=== PATIENT | male | born 1955 | race Caucasian/White ===

== ENCOUNTER 2017-03-21 16:01 | Emergency (ER) | payer OTHER ==
[2017-03-21 16:14] VITALS: BP 180/101
--- NOTE | 2017-03-21 16:28 | UC ---
Respiratory Complaint HPI - HPI Summary HPI Summary: 4 weeks of cough and chest congestion no fevers up at night coughing - History of Current Complaint Chief Complaint: UCRespiratory Stated Complaint: CHEST COLD Time Seen by Provider: 03/21/17 16:21 Hx Obtained From: Patient Onset/Duration: Gradual Onset, Lasting Weeks - 4 Timing: Constant Severity Initially: Mild Severity Currently: Mild Pain Intensity: 4 Pain Scale Used: 0-10 Numeric Character: Cough: Productive Aggravating Factors: Recumbent Position Alleviating Factors: Nothing Associated Signs And Symptoms: Positive: URI, Nasal Congestion - Allergies/Home Medications Allergies/Adverse Reactions: Allergies Allergy/AdvReac Type Severity Reaction Status Date / Time No Known Allergies Allergy Verified 03/21/17 16:13 PMH/Surg Hx/FS Hx/Imm Hx Previously Healthy: No Cardiovascular History: Hypertension - borderline---is follow with pcp - Surgical History Surgical History: None - Family History Known Family History: Positive: None - Social History Occupation: Employed Full-time Lives: With Family Alcohol Use: Daily Substance Use Type: None Smoking Status (MU): Never Smoked Tobacco Review of Systems Constitutional: Fever - subjective Skin: Negative Eyes: Negative ENT: Negative Respiratory: Cough Cardiovascular: Negative Gastrointestinal: Negative Genitourinary: Negative Motor: Negative Neurovascular: Negative Musculoskeletal: Negative Neurological: Negative Psychological: Negative Is Patient Immunocompromised?: No All Other Systems Reviewed And Are Negative: Yes Physical Exam Triage Information Reviewed: Yes Appearance: Well-Appearing, No Pain Distress, Well-Nourished Vital Signs: Initial Vital Signs Temp 98.7 F 03/21/17 16:10 Pulse 89 03/21/17 16:10 Resp 18 03/21/17 16:10 BP 180/101 03/21/17 16:10 Pulse Ox 98 03/21/17 16:10 Vital Signs Reviewed: Yes Eye Exam: Normal Eyes: Positive: Conjunctiva Clear ENT Exam: Normal ENT: Positive: Normal ENT inspection, Hearing grossly normal, Pharynx normal, TMs normal. Negative: Nasal congestion, Nasal drainage, Tonsillar swelling, Tonsillar exudate, Trismus, Muffled/hoarse voice Dental Exam: Normal Neck exam: Normal Neck: Positive: Supple, Nontender, No Lymphadenopathy Respiratory Exam: Normal Respiratory: Positive: Chest non-tender, Lungs clear, Normal breath sounds, No respiratory distress, No accessory muscle use Cardiovascular Exam: Normal Cardiovascular: Positive: RRR, No Murmur, Pulses Normal, Brisk Capillary Refill Musculoskeletal Exam: Normal Musculoskeletal: Positive: Strength Intact, ROM Intact, No Edema Neurological Exam: Normal Neurological: Positive: Alert, Muscle Tone Normal Psychological Exam: Normal Skin Exam: Normal UC Diagnostic Evaluation - Laboratory O2 Sat by Pulse Oximetry: 98 Respiratory Course/Dx - Course Course Of Treatment: robitussin, increase fluids, tessalon, zithromax, follow with pcp in next 2 weeks for recheck and BP reevaluation - Differential Dx/Diagnosis Provider Diagnoses: Bronchitis, High Blood Pressure without diagnosis of hypertension Discharge - Discharge Plan Condition: Stable Disposition: HOME Prescriptions: Azithromycin TAB* [Zithromax TAB (Z-MALCOLM) 250 mg #6 tabs] 2 tab PO .TODAY, THEN 1 DAILY #1 malcolm Benzonatate CAP* [Tessalon 100 MG CAP*] 100 mg PO TID PRN #30 cap PRN Reason: cough Patient Education Materials: Antitussive/Decongestant/Expectorant (By mouth), Acute Bronchitis (ED), Hypertension (ED) Referrals: Jo Ann Martinez MD [Primary Care Provider] - 2 Weeks
== END 2017-03-21 16:43 | disposition home or self-care (01) ==
LOC: UCEAST 16:01
DX: J40 Bronchitis, not specified as acute or chronic (principal); R03.0 Elevated blood-pressure reading, without diagnosis of hypertension
CPT/HCPCS: 99202; G0463

== ENCOUNTER 2018-09-17 10:58 | Emergency (ER) | payer OTHER ==
[2018-09-17] MEDS ORDERED: Albuterol/Ipratropium NEB.SOL* Albuterol 2.5 MG/Ipratropium 0.5 MG 3 ML INH ONE (11:22)
--- NOTE | 2018-09-17 11:27 | UC ---
Respiratory Complaint HPI - HPI Summary HPI Summary: 63 old male who has had cold symptoms for the past 2 or 3 days with a productive cough of mildly yellow sputum. He does not feel short of breath. Nonsmoker and did receive a flu shot in the past. He did have some hypertension today and we discussed that he and his physician are working together with a new medication which he was prescribed approximate 6 or 7 months ago. He has an appointment in 2 weeks with his primary care provider. He goes to the gym and checks his blood pressure there he states the diastolic is usually about 100. He does keep track of that and will discuss that with his doctor in his visit. - History of Current Complaint Chief Complaint: UCGeneralIllness Stated Complaint: COUGH CONGESTION Time Seen by Provider: 09/17/18 11:05 Hx Obtained From: Patient Onset/Duration: Gradual Onset Timing: Constant Severity Initially: Mild Severity Currently: Mild Pain Intensity: 0 Character: Cough: Productive - To cough of light yellow sputum. Alleviating Factors: Nothing Associated Signs And Symptoms: Positive: URI, Nasal Congestion - Allergies/Home Medications Allergies/Adverse Reactions: Allergies Allergy/AdvReac Type Severity Reaction Status Date / Time No Known Allergies Allergy Verified 09/17/18 11:11 Home Medications: Home Medications Telmisartan 20 mg PO DAILY 09/17/18 [History Confirmed 09/17/18] PMH/Surg Hx/FS Hx/Imm Hx Previously Healthy: Yes Cardiovascular History: Hypertension - Surgical History Surgical History: None - Family History Known Family History: Positive: None - Social History Alcohol Use: Daily Alcohol Amount: 32 oz beer daily Substance Use Type: None Smoking Status (MU): Never Smoked Tobacco Review of Systems All Other Systems Reviewed And Are Negative: Yes ENT: Positive: Nasal Discharge Respiratory: Positive: Cough - Productive Cough of yellow sputum. Is Patient Immunocompromised?: No Physical Exam Triage Information Reviewed: Yes Appearance: Well-Appearing, No Pain Distress, Well-Nourished Vital Signs: Initial Vital Signs Temp 98.7 F 09/17/18 11:10 Pulse 70 09/17/18 11:10 Resp 16 09/17/18 11:10 BP 166/110 09/17/18 11:10 Pulse Ox 97 09/17/18 11:10 Vital Signs Reviewed: Yes Eye Exam: Normal ENT: Positive: Nasal congestion, Nasal drainage - Clear nasal coryza, Uvula midline Neck: Positive: Supple, Nontender, No Lymphadenopathy Respiratory: Positive: No respiratory distress, No accessory muscle use, Rhonchi , Wheezing - Wheezing and rhonchi with forced expiration throughout. Cardiovascular: Positive: RRR, No Murmur, Pulses Normal, Brisk Capillary Refill Musculoskeletal Exam: Normal Neurological Exam: Normal Psychological Exam: Normal Skin Exam: Normal Respiratory Course/Dx - Course Course Of Treatment: CXR: 2 views of the chest including dual energy PA views demonstrates no mediastinal shift. Tortuous descending aorta is noted. Lung balderas are clear. IMPRESSION: No active cardiopulmonary disease is noted. - Differential Dx/Diagnosis Provider Diagnosis: Bronchitis Discharge - Sign-Out/Discharge Documenting (check all that apply): Patient Departure All imaging exams completed and their final reports reviewed: Yes - Discharge Plan Condition: Good Disposition: HOME Prescriptions: predniSONE [Prednisone 20 MG TAB] 40 mg PO DAILY 5 Days #10 tablet Patient Education Materials: Acute Bronchitis (ED) Referrals: Jo Ann Martinez MD [Primary Care Provider] - Additional Instructions: Increase fluids, your chest x-ray was negative for pneumonia, take the prednisone daily with food. Definite follow-up with your primary care provider in for 5 days if no improvement. - Billing Disposition and Condition Condition: GOOD Disposition: Home
[2018-09-17 11:54] VITALS: BP 160/100
== END 2018-09-17 12:02 | disposition home or self-care (01) ==
LOC: UCEAST 10:58
DX: J40 Bronchitis, not specified as acute or chronic (principal); Q25.46 Tortuous aortic arch; I10 Essential (primary) hypertension
CPT/HCPCS: 71046; 99212; A9270-GY; G0463